=== PATIENT | male | born 1990 | race Caucasian/White ===

== ENCOUNTER 2024-07-03 17:16 | Emergency (ER) | payer SELFPAY | END 2024-07-03 18:00 | LOC: DL.ED 17:16 | DX: S61.412A Laceration without foreign body of left hand, initial encounter (principal); S61.210A Laceration without foreign body of right index finger without damage to nail, initial encounter; X99.9XXA Assault by unspecified sharp object, initial encounter | CPT/HCPCS: 99282; 99284 ==